=== PATIENT | male | born 1990 | race American Indian/Alaskan Native ===

== ENCOUNTER 2018-03-16 22:30 | Emergency (ER) | payer OTHER ==
[2018-03-16 23:24] VITALS: BP 120/70
[2018-03-17] MEDS ORDERED: MOTRIN PO ONE (02:33)
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
== END 2018-03-17 04:30 | disposition home or self-care (01) ==
LOC: ED 22:30
DX: S39.012A Strain of muscle, fascia and tendon of lower back, initial encounter (principal); V49.50XA Passenger injured in collision with unspecified motor vehicles in traffic accident, initial encounter; Y93.89 Activity, other specified; Y92.89 Other specified places as the place of occurrence of the external cause; Y99.8 Other external cause status
CPT/HCPCS: 99282